=== PATIENT | female | born 1965 | race Caucasian/White ===

== ENCOUNTER 2023-05-03 10:13 | Inpatient (IN) | payer OTHER, MEDICAID, SELFPAY ==
[2023-05-03] VITALS (73 sets, daily range): BP systolic 60–137; BP diastolic 41–90; PULSE 64–184; RESP 8–26; TEMP 36.3–36.7; O2SAT 91–99
--- NOTE | 2023-05-03 10:27 | DI.RAD.S_ITS ---
PROCEDURE: XR CHEST 1V INDICATIONS: chest pain TECHNIQUE: One view of the chest was acquired. COMPARISON: None. FINDINGS: Surgical changes and devices: None. Lungs and pleura: Mild generalized interstitial prominence can be seen. No pleural effusions or pneumothorax. Mediastinum: Mediastinal contours appear normal. Heart size is moderately enlarged. Bones and chest wall: No suspicious bony lesions. Age-appropriate bony degenerative changes are seen. Overlying soft tissues appear unremarkable. IMPRESSION: Cardiomegaly and interstitial prominence. CHF is suspected. Dictated by: Donovan Lira M.D. on 05/03/2023 at 9:48 Approved by: Donovan Lira M.D. on 05/03/2023 at 9:48
[2023-05-03] MEDS: ASPIRIN 81 MG CHEW TAB 324 MG PO (10:36)
[2023-05-03 10:47] LABS: Add Manual Diff / Slide Review NO; Basophils Absolute Auto 100 /uL (0-100); Basophils Percent Auto 1.4 % (0-2); Eosinophils Absolute Auto 200 /uL (0-450); Eosinophils Percent Auto 1.6 % (2-4); Hematocrit 47.3 % (36-46); Hemoglobin 16.1 g/dL (12.0-16.0); Lymphocytes Absolute Auto 2900 /uL (1100-4500); Lymphocytes Percent Auto 29.3 % (25-40); Mean Corpuscular Hemoglobin 31.2 PG (26-34); Mean Corpuscular Volume 91.6 fL (80-100); Monocytes Absolute Auto 500 /uL (0-900); Monocytes Percent Auto 5.3 % (3-14); Neutrophils Absolute Auto 6100 /uL (1500-7000); Neutrophils Percent Auto 62.4 % (50-75); Platelet Count 193 X10^3/uL (150-400); Red Blood Cell Count 5.16 X10^6/uL (4.0-5.2); White Blood Cell Count 9.7 X10^3/uL (4.5-11.0)
[2023-05-03 10:50] LABS: INR 0.9 (0.9-1.3); Prothrombin Time 10.6 SECONDS (10.1-12.7)
[2023-05-03 10:53] LABS: PTT Partial Thromboplastin Tim 28 SECONDS (26-36)
[2023-05-03 11:00] LABS: Alanine Aminotransferase 17 IU/L (<35); Albumin 4.1 g/dL (3.5-5.0); Albumin Globulin Ratio 1.5 (1.0-2.8); Alkaline Phosphatase 63 U/L (38-126); Aspartate Aminotransferase 20 IU/L (14-36); BUN Creatinine Ratio 13.2 (6-22); Bilirubin Total 0.6 mg/dL (0.2-1.3); Blood Urea Nitrogen 12 mg/dL (7-17); Calcium 10.5 mg/dL (8.4-10.2); Carbon Dioxide 22 mmol/L (22-32); Chloride 109 mmol/L (98-107); Creatine Kinase 33 U/L (30-135); Estimated Glomerular Filt Rate > 60 mL/min (>60); Globulin 2.8 g/dL (1.7-4.1); Glucose 122 mg/dL (70-100); HEMOLYSIS 22 (0-50); Lipase 135 U/L (23-300); Magnesium 2.1 mg/dL (1.6-2.3); Potassium 4.1 mmol/L (3.4-5.1); Sodium 139 mmol/L (137-145); Total Protein 6.9 g/dL (6.3-8.2)
--- NOTE | 2023-05-03 11:07 | ED.GENADULT ---
HPI - General Adult General Chief complaint: Dizziness Stated complaint: Afib RVR Time Seen by Provider: 05/03/23 11:06 Source: patient Mode of arrival: EMS History of Present Illness HPI narrative: 57-year-old woman who presents complaining of dizzy spells increasing in intensity and frequency over the last week. She has not actually lost consciousness, not associated with chest pain, shortness of breath or diaphoresis. She states that she does not currently have a physician is not currently on any medications. She takes vitamin-D as a supplement and no additional medications. She denies any recreational medications including stimulants and opiates. Related Data Home Medications Medication Instructions Recorded Confirmed cholecalciferol (vitamin D3) 25 25 mcg PO DAILY 05/03/23 05/03/23 mcg (1,000 unit) capsule Allergies Allergy/AdvReac Type Severity Reaction Status Date / Time No Known Drug Allergies Allergy Verified 05/03/23 11:08 Review of Systems Review of Systems Narrative: Pertinent positive and negative findings as per HPI Patient History Social History household members: none Smoking Status: Current every day smoker alcohol intake: current Smoking Status: Current every day smoker Exam Initial Vital Signs Initial Vital Signs: Vital Signs Temperature 98.0 F 05/03/23 10:15 Pulse Rate 109 H 05/03/23 10:15 Respiratory Rate 18 05/03/23 10:15 Blood Pressure 116/84 05/03/23 10:15 Pulse Oximetry 95 05/03/23 10:15 Oxygen Delivery Method Room Air 05/03/23 10:15 General: Disheveled, chronically ill-appearing, in no acute distress Able to give a complete and coherent history. HEENT: Poor dentition, Moist mucous membranes, normal sclera with reactive pupils, Neck: No JVD, supple Respiratory: Lungs are clear to auscultation, no wheezing no rales no rhonchi. Full and symmetrical air movement Cardiac: Regular rate and rhythm no murmurs no bruits -as we are talking she goes into a narrow rapid rhythm. She states she can feel this it does not cause pain. This has been going on all week. Abdomen: Soft, nontender, good bowel tones, no flank pain Skin: Warm and dry, no rashes Neurologic: Grossly neurologically intact with no obvious asymmetries or abnormalities Extremities: No trauma, well perfused Psych: Cooperative, appropriate insight and affect Course Orders Ordered: Acetaminophen (Acetaminophen 325 Mg Tablet) 650 mg PO Q6H PRN PRN Reason: Fever/Mild Pain (1-3) Ceftriaxone Sodium 1,000 mg/ (Sodium Chloride) 100 mls @ 200 mls/hr IV Q24H [facility] Stop: 05/05/23 10:14 Last Admin: 05/04/23 09:46 Dose: 200 mls/hr Documented By: TOM Melatonin (Melatonin 3 Mg Tablet) 6 mg PO BEDTIME PRN PRN Reason: Insomnia Metoprolol Succinate (Metoprolol Er 25 Mg Tablet) 12.5 mg PO DAILY [facility] Last Admin: 05/04/23 09:43 Dose: 12.5 mg Documented By: TOM Naloxone HCl (Naloxone 0.4 Mg/Ml Vial) 0.2 mg IV Q2MIN PRN PRN Reason: Opiate Reversal Polyethylene Glycol (Polyethylene Glycol 3350 17 Gm Powd.Pack) 17 gm PO DAILY PRN PRN Reason: Constipation Sennosides (Sennosides 8.6 Mg Tablet) 8.6 mg PO BID PRN PRN Reason: Constipation Discontinued Medications Aspirin (Aspirin 81 Mg Chew Tab) 324 mg PO NOW ONE Stop: 05/03/23 10:28 Last Admin: 05/03/23 10:36 Dose: 324 mg Documented By: BEL Furosemide (Furosemide 40 Mg/4 Ml Vial) 20 mg IV NOW ONE Stop: 05/03/23 13:59 Last Admin: 05/03/23 15:18 Dose: Not Given Documented By: TOM Sodium Chloride (Normal Saline 0.9%) 1,000 mls @ 1,000 mls/hr IV BOLUS ONE Stop: 05/03/23 12:05 Last Infusion: 05/03/23 12:29 Dose: Infused Documented By: Admin: 05/03/23 11:55 Dose: 1,000 mls/hr Documented By: BEL Amiodarone HCl/Dextrose (Nexterone) 150 mg in 100 mls @ 600 mls/hr IV NOW ONE; Protocol Stop: 05/03/23 12:04 Last Infusion: 05/03/23 12:30 Dose: Infused Documented By: Admin: 05/03/23 12:14 Dose: 600 mls/hr Documented By: BEL Ceftriaxone Sodium 2,000 mg/ (Sodium Chloride) 100 mls @ 200 mls/hr IV NOW ONE Stop: 05/03/23 12:28 Last Admin: 05/03/23 15:29 Dose: Not Given Documented By: TOM Sodium Chloride (Normal Saline 0.9%) 1,000 mls @ 1,000 mls/hr IV BOLUS ONE Stop: 05/03/23 13:26 Last Admin: 05/03/23 15:18 Dose: Not Given Documented By: TOM Sodium Chloride (Normal Saline 0.9%) 1,000 mls @ 100 mls/hr IV CONT GASPER Stop: 05/04/23 01:29 Last Admin: 05/03/23 15:18 Dose: Not Given Documented By: TOM Amiodarone HCl/Dextrose (Nexterone) 360 mg in 200 mls @ 33.333 mls/hr IV NOW ONE; Protocol Stop: 05/03/23 20:28 Last Admin: 05/03/23 14:29 Dose: Not Given Documented By: TOM Amiodarone HCl/Dextrose (Nexterone) 360 mg in 200 mls @ 16.7 mls/hr IV CONT GASPER; Protocol Stop: 05/04/23 08:27 Last Admin: 05/04/23 07:20 Dose: Not Given Documented By: TOM Amiodarone HCl/Dextrose (Nexterone) 180 mg in 100 mls @ 16.7 mls/hr IV CONT GASPER; Protocol Stop: 05/04/23 14:27 Last Admin: 05/04/23 07:34 Dose: Not Given Documented By: TOM Ceftriaxone Sodium 1,000 mg/ (Sodium Chloride) 100 mls @ 200 mls/hr IV Q24H [facility] Stop: 05/05/23 09:01 Metoprolol Tartrate (Metoprolol Ir 25 Mg Tablet) 12.5 mg PO NOW ONE Stop: 05/03/23 11:33 Last Admin: 05/03/23 11:55 Dose: 12.5 mg Documented By: BEL Vital Signs Vital signs: Vital Signs - 8 hr 05/03/23 10:15 05/03/23 10:17 05/03/23 10:19 Temperature 98.0 F Pulse Rate 109 H Respiratory Rate 18 Blood Pressure 116/84 116/84 Pulse Oximetry 95 95 Oxygen Delivery Method Room Air 05/03/23 10:19 05/03/23 10:20 05/03/23 10:25 Temperature Pulse Rate 115 H 103 H 102 H Respiratory Rate 10 L Blood Pressure Pulse Oximetry 96 96 96 Oxygen Delivery Method Room Air 05/03/23 10:30 05/03/23 10:30 05/03/23 10:35 Temperature Pulse Rate 145 H 104 H Respiratory Rate 12 11 L Blood Pressure 114/87 Pulse Oximetry 95 95 Oxygen Delivery Method 05/03/23 10:40 05/03/23 10:45 05/03/23 10:50 Temperature Pulse Rate 105 H 142 H 113 H Respiratory Rate 10 L 14 11 L Blood Pressure Pulse Oximetry 95 95 96 Oxygen Delivery Method 05/03/23 10:55 05/03/23 11:00 05/03/23 11:01 Temperature Pulse Rate 143 H 182 H Respiratory Rate 21 18 Blood Pressure 60/41 L Pulse Oximetry 95 93 Oxygen Delivery Method 05/03/23 11:01 Temperature Pulse Rate 88 Respiratory Rate 14 Blood Pressure Pulse Oximetry 95 Oxygen Delivery Method Medical Decision Making Lab Data 05/04/23 04:04 05/04/23 04:04 Labs: Lab Results 05/03/23 05/03/23 Range/Units 10:35 11:48 WBC 9.7 (4.5-11.0) X10^3/uL RBC 5.16 (4.0-5.2) X10^6/uL Hgb 16.1 H (12.0-16.0) g/dL Hct 47.3 H (36-46) % MCV 91.6 (80-100) fL MCH 31.2 (26-34) PG MCHC 34.0 (30-36) % RDW 14.0 (11.6-14.8) % Plt Count 193 (150-400) X10^3/uL Neut % (Auto) 62.4 (50-75) % Lymph % (Auto) 29.3 (25-40) % Hitchcock % (Auto) 5.3 (3-14) % Eos % (Auto) 1.6 L (2-4) % Baso % (Auto) 1.4 (0-2) % Neut # (Auto) 6100 (7593-1498) /uL Lymph # (Auto) 2900 (6976-1827) /uL Hitchcock # (Auto) 500 (0-900) /uL Eos # (Auto) 200 (0-450) /uL Baso # (Auto) 100 (0-100) /uL PT 10.6 (10.1-12.7) SECONDS INR 0.9 (0.9-1.3) APTT 28 (26-36) SECONDS D-Dimer 423 (<500) ng/ml Sodium 139 (137-145) mmol/L Potassium 4.1 (3.4-5.1) mmol/L Chloride 109 H (98-107) mmol/L Carbon Dioxide 22 (22-32) mmol/L BUN 12 (7-17) mg/dL Creatinine 0.91 (0.52-1.04) mg/dL Estimated GFR > 60 (>60) mL/min BUN/Creatinine Ratio 13.2 (6-22) Glucose 122 H (70-100) mg/dL Lactate 2.2 H (0.7-2.1) mmol/L Calcium 10.5 H (8.4-10.2) mg/dL Magnesium 2.1 (1.6-2.3) mg/dL Total Bilirubin 0.6 (0.2-1.3) mg/dL AST 20 (14-36) IU/L ALT 17 (<35) IU/L Alkaline Phosphatase 63 (38-126) U/L Total Creatine Kinase 33 (30-135) U/L Troponin I < 0.012 (0.01-0.034) ng/mL NT-Pro-B Natriuret Pep 376 H (<125) pg/mL Total Protein 6.9 (6.3-8.2) g/dL Albumin 4.1 (3.5-5.0) g/dL Globulin 2.8 (1.7-4.1) g/dL Albumin/Globulin Ratio 1.5 (1.0-2.8) Lipase 135 (23-300) U/L TSH 2.40 (0.47-4.68) uIU/mL Urine Color Yellow Urine Appearance Clear Urine pH 7.0 (4.5-8.0) Ur Specific [place] <=1.005 (1.000-1.035) Urine Protein Negative (Negative) Urine Glucose (UA) Negative (Negative) g/dL Urine Ketones Negative (NEGATIVE) Urine Occult Blood Trace-intact (Negative) Urine Nitrate Positive H (Negative) Urine Bilirubin Negative (NEGATIVE) Urine Urobilinogen 0.2 (0.2) E.U./dL Ur Leukocyte Esterase Trace H (NEGATIVE) Urine RBC 0-1/hpf (0-5/HPF) Urine WBC 1-5/hpf (0-5/HPF) Ur Squamous Epith Cells 1-5 /hpf (0-5/HPF) Urine Bacteria Many (>30) H (None) Ur Culture Indicated? Specimen cultured U Opiates 300ng/mL cut Negative (Negative) Ur Oxycodone Screen Negative (Negative) Urine Methadone Screen Negative (Negative) Ur Barbiturates Screen Negative (Negative) U Tricyclic Antidepress Negative (Negative) Ur Phencyclidine Scrn Negative (Negative) Ur Amphetamines Screen Negative (Negative) U Methamphetamines Scrn Negative (Negative) Ur MDMA Scrn (Ecstasy) Negative (Negative) U Benzodiazepines Scrn Negative (Negative) Urine Cocaine Screen Negative (Negative) U Marijuana (THC) Screen Negative (Negative) Urine Dip Bedside Urine Glucose Negative Bedside Urine Bilirubin - Negative Bedside Urine Ketone - Negative Urine Specific [place] 1.000 Bedside Urine Occult Blood +/- Bedside Urine pH 7.0 Bedside Urine Protein - Negative Bedside Urine Urobilinogen - Negative Bedside Urine Nitrite + Positive Bedside Urine Leukocytes +/- 15 Esterase Point of care testing: Urine Dip Bedside Urine Glucose Negative Bedside Urine Bilirubin - Negative Bedside Urine Ketone - Negative Urine Specific [place] 1.000 Bedside Urine Occult Blood +/- Bedside Urine pH 7.0 Bedside Urine Protein - Negative Bedside Urine Urobilinogen - Negative Bedside Urine Nitrite + Positive Bedside Urine Leukocytes +/- 15 Esterase MDM Narrative Medical decision making narrative: CC: Dizzy spells Complicating co-morbidities: Poor access to medical care Data collected from: patient, nephew was present in the room Social determinants of health that may influence the patients condition: Medical records reviewed: No records are available for review Differential considered: Atrial tachycardia is including SVT, atrial fibrillation, atrial flutter, ventricular tachycardia is, acute coronary syndrome, cardiomyopathy, congestive heart failure Exam documented above, pertinent findings include: Rapidly changing rhythm going from sinus in the 70s to sinus tach to a narrow complex rhythm in the almost 200 range. She does not have clinical signs or symptoms of congestive heart failure Lab Test results independently reviewed as above. Pertinent findings: CBC shows mild hemo concentration, she is a smoker PT, INR, PTT are all normal Chemistries are relatively reassuring with a normal creatinine. Calcium is slightly elevated at 10.5 Initial troponin is undetectable TSH is appropriate BNP fairly unremarkable at 376 Utox is negative Urine does suggest positive nitrites trace leukocytes and bacteria. Will opt to treat for a bladder infection D-dimer is negative suggesting absence of pulmonary embolism Independently reviewed EKG Rhythm strips from the medics were reviewed and show plethora of abnormalities going sinus to SVT to sinus tach Initially EKG shows sinus tach at 1:09 a.m. with PVCs and no acute ischemic changes Telemetry shows normal sinus at a rate of 70 Repeat EKG shows supraventricular tachycardia at a rate of 182 with concurrent significant hypotension Imaging studies independently reviewed: Cardiomegaly with volume overload consistent with mild congestive heart failure Consultations: Care is reviewed with Cardiology, Dr Simmons. Recommendation was a L of fluid and oral beta-blockers Treatments: Aspirin is given, a L of fluid is given. 12.5 mg of oral metoprolol, IV amiodorone, IV ceftriaxone Re-evaluations: 1150 patient is re-evaluated. It still having rapid fluctuations in rhythms, still all atrial rhythms. Discussed with admitting hospitalist, Dr. Dobson. We will try 150 mg of IV amiodarone. A D-dimer is added Discussion: 57-year-old woman with intermittent episodes of very rapid SVT along with other atrial tachycardia is. Ongoing for at least a week with increasing episodes of dizzy spells. Associated hypotension with the rapid rhythms. Likely congestive heart failure which is a new diagnosis for her. Unsure if this is secondary to the rhythm abnormalities or if there is an underlying additional reason for a cardiomyopathy that may be causing the atrial abnormalities. Screen for meth is unremarkable. Her urine does look like she may have a bladder infection however she is not symptomatic with this. Will give her a dose of ceftriaxone and check lactic acid and blood cultures 1st. D-dimer was unremarkable, do not suspect pulmonary embolism. Reviewed with the hospitalist and will be admitted for further evaluation for her supraventricular tachyarrhythmias with hypotension Critical Care Time Critical Care Time Attestation: Critical care time is separate from other billable procedures. There is a high probability of a significant, sudden or life-threatening deterioration that requires my full and direct attention, intervention and personal management. This critical care time includes consultation with family and other consulting doctors, review of records, and interpretation of data from labs, EKGs and imaging as well as managements of acute life-threatening arrhythmias and hypotension Discharge Plan Departure Patient Disposition: Admitted As Inpatient Clinical Impression: Supraventricular dysrhythmia UTI (urinary tract infection) Qualifiers: Urinary tract infection type: acute cystitis Hematuria presence: without hematuria Qualified Code(s): N30.00 - Acute cystitis without hematuria Admit Date/Time: 05/03/23 13:08 Admit Provider: Ken Dobson
[2023-05-03 11:10] LABS: Troponin I < 0.012 ng/mL (0.01-0.034)
--- NOTE | 2023-05-03 11:39 | PC.NURSE ---
pt is refusing bedside commode. Education completed regarding risks of walking around w/ verbalized understanding I don't care. Ambulated to bathroom w/ staff member.
[2023-05-03 11:42] LABS: NT-proBNP (BNP-Adult 18+) 376 pg/mL (<125)
[2023-05-03] MEDS: SODIUM CHLORIDE 0.9% 1,000 ML 1000 ML IV (11:55)
[2023-05-03] MEDS: METOPROLOL IR 25 MG TABLET 12.5 MG PO (11:55)
[2023-05-03 12:04] LABS: D Dimer 423 ng/ml (<500)
[2023-05-03 12:09] LABS: Appearance Urine UA CLEAR; Bilirubin Urine UA NEGATIVE (NEGATIVE); Color Urine UA YELLOW; Glucose Urine UA NEGATIVE (Negative); Ketones Urine UA NEGATIVE (NEGATIVE); Leukocyte Esterase Urine UA TRACE (NEGATIVE); Nitrite Urine UA POSITIVE (Negative); Occult Blood Urine UA TRACE-INTACT (Negative); Protein Urine UA NEGATIVE (Negative); Specific Gravity Urine UA <=1.005 (1.000-1.035); Urobilinogen Urine UA 0.2 E.U./dL (0.2)
[2023-05-03 12:12] LABS: UR Morphine/Opiate cutoff 300 Negative (Negative); Ur Creatinine Normal (Normal); Ur Specific Gravity Normal (Normal); Urine Amphetamines Negative (Negative); Urine Barbiturates Negative (Negative); Urine Benzodiazepines Negative (Negative); Urine Cocaine Negative (Negative); Urine MDMA Negative (Negative); Urine Methadone Negative (Negative); Urine Methamphetamines Negative (Negative); Urine Oxycodone Negative (Negative); Urine Phencyclidine Negative (Negative); Urine Tetrahydrocannabinol Negative (Negative); Urine Tricyclic Antidepressant Negative (Negative); Urine pH Normal (Normal)
[2023-05-03] MEDS: AMIODARONE 150 MG/100 ML PIGGYBACK 600 MG IV (12:14)
[2023-05-03 12:17] LABS: Bacteria Urine Many (>30); Culture Indicated Urine Specimen Cultured; RBC Urine 0-1/HPF (0-5/HPF); Squamous Epithelial Cell Urine 1-5 /HPF (0-5/HPF); WBC Urine 1-5/HPF (0-5/HPF)
--- NOTE | 2023-05-03 12:36 | PC.NURSE ---
Pt refused blood cultures, Dr. León ok'd drawning off line.
[2023-05-03 12:41] LABS: Lactate (Lactic Acid) 2.2 mmol/L (0.7-2.1)
--- NOTE | 2023-05-03 13:24 | DI.ECHO.S_ITS ---
[facility]---------+ [facility] +---------+ : : [address] : : : : [id number] : : : : Phone: [phone]+ Echocardiogram Report + + :Name: MARGARITO PEREZ Study Date: 05/04/2023 Height: 64 in : :[facility] ReadingLocation: Weight: 175 lb : : Gender: Female BSA: 1.8 m2 : :: 1965 Age: 57 yrs BP: 108/68 mmHg: :Reason For Study: Recurrent SVT : :Ordering Physician: MARQUIS, : :TASH [place] Performed By: Sangita Edmonds : :Referring: TASH CHO : + + Interpretation Summary Rhythm is not clear. Possible ectopic atrial rhythm with frequent run of atrial tachycardia. Could be short run of atrial flutter. Correlate clinically. The left ventricle is normal in size. The left ventricular ejection fraction is normal. The ejection fraction is estimated to be 55-60%. No obvious regional wall motion abnormalities however significant dyssynchrony during atrial tachycardia. The right ventricle grossly appears normal in size with probable normal systolic function. The IVC is of normal diameter and collapses greater than 50% with a sniff. This suggests a low right atrial pressure of 3 mm Hg. There is a large about 8.12 x 4.05 cm mass seen in the right atrium. In subcostal view it is involving all the posterior width of the right atrium and extending all the way towards the tricuspid valve. Its not encroaching the tricuspid valve. It is filling most of the right atrium. From apical views this appears to be a humongous interatrial septal hypertrophy along with prominent eustachian valve. No encroachment to the inferior vena cava. Consider cardiac MRI or JAZIEL for further evaluation of right atrial mass. Procedure: A two-dimensional transthoracic echocardiogram with color flow and Doppler was performed in limited views only. The study quality was technically adequate. There is no prior echocardiogram noted for this patient. A contrast injection of Definity was performed to improve assessment of LV function. Rhythm is not clear. Possible ectopic atrial rhythm with frequent run of atrial tachycardia. Could be short run of atrial flutter. Correlate clinically. Left Ventricle: The left ventricle is normal in size. There is normal left ventricular wall thickness. There is no thrombus. The left ventricular ejection fraction is normal. The ejection fraction is estimated to be 55-60%. No obvious regional wall motion abnormalities however significant dyssynchrony during atrial tachycardia. Right Ventricle: The right ventricle grossly appears normal in size with probable normal systolic function. Atria: The left atrial size is normal. A mass is seen in the right atrium. There is a large about 8.12 x 4.05 cm mass seen in the right atrium. In subcostal view it is involving all the posterior width of the right atrium and extending all the way towards the tricuspid valve. Its not encroaching the tricuspid valve. It is filling most of the right atrium. From apical views this may appears to be a humongous interatrial septal hypertrophy along with prominent eustachian valve. No encroachment to the inferior vena cava. Mitral Valve: The mitral valve is normal. There is no mitral regurgitation noted. Aortic Valve: The aortic valve is not well visualized. There is no aortic valve stenosis. Tricuspid Valve: The tricuspid valve is not well visualized, but is grossly normal. There is trace tricuspid regurgitation. Pulmonic Valve: The pulmonic valve is not well visualized. There is no pulmonic valvular stenosis. There is trace pulmonic regurgitation. Great Vessels: The ascending aorta is at the upper limits of normal in size. The IVC is of normal diameter and collapses greater than 50% with a sniff. This suggests a low right atrial pressure of 3 mm Hg. Pericardium/ Pleura There is an anterior echo-free space consistent with a fat pad. MMode/2D Measurements & Calculations asc Aorta Diam: 3.7 cm Reading Physician:02:59 PM
--- NOTE | 2023-05-03 13:56 | PM.HP.1 ---
History of Present Illness History of Present Illness Date Patient Seen: 05/03/23 Time Patient Seen: 17:14 Chief complaint: Afib RVR Narrative: Ana Cristina Lam is a 57-year-old female with no significant past medical history who presents with recurrent dizzy spells and found to be having SVT episodes in the ED. Patient says she has had lighheadedness randomly requiring her to sit down for it to improve over the last week. She then had an episode today where she felt like curtains were closing in and she was going to pass out so she called EMS. She did not lose consciousness but had presyncope. In the ED patient found to be having runs of SVT with HR up to 190's. She did not require cardioversion as it would abruptly return to sinus. BP soft in the ED as well, but patient notes she always has very low BP and has no symptoms. She denies CP, SOB, abd pain, LE swelling, diarrhea or dysuria. [facility] Social History household members: none Smoking Status: Current every day smoker alcohol intake: current Meds Home Medications and Allergies Home Medications Medication Instructions Recorded Confirmed Type cholecalciferol (vitamin D3) 25 25 mcg PO DAILY 05/03/23 05/03/23 History mcg (1,000 unit) capsule Allergies Allergy/AdvReac Type Severity Reaction Status Date / Time No Known Drug Allergies Allergy Verified 05/03/23 11:08 Review of Systems Review of Systems Narrative: All other systems reviewed with the patient and are negative unless otherwise stated. Exam Vital Signs (past 8 hours): - 05/03/23 10:15 05/03/23 10:17 05/03/23 10:19 Temperature 98.0 F Pulse Rate 109 H Respiratory Rate 18 Blood Pressure 116/84 116/84 Pulse Oximetry 95 95 Oxygen Delivery Method Room Air 05/03/23 10:19 05/03/23 10:20 05/03/23 10:25 Temperature Pulse Rate 115 H 103 H 102 H Respiratory Rate 10 L Blood Pressure Pulse Oximetry 96 96 96 Oxygen Delivery Method Room Air 05/03/23 10:30 05/03/23 10:30 05/03/23 10:35 Temperature Pulse Rate 145 H 104 H Respiratory Rate 12 11 L Blood Pressure 114/87 Pulse Oximetry 95 95 Oxygen Delivery Method 10/07/23 10:40 05/03/23 10:45 05/03/23 10:50 Temperature Pulse Rate 105 H 142 H 113 H Respiratory Rate 10 L 14 11 L Blood Pressure Pulse Oximetry 95 95 96 Oxygen Delivery Method 05/03/23 10:55 05/03/23 11:00 05/03/23 11:01 Temperature Pulse Rate 143 H 182 H Respiratory Rate 21 18 Blood Pressure 60/41 L Pulse Oximetry 95 93 Oxygen Delivery Method 05/03/23 11:01 05/03/23 11:03 05/03/23 11:03 Temperature Pulse Rate 88 184 H Respiratory Rate 14 15 Blood Pressure 99/67 Pulse Oximetry 95 95 Oxygen Delivery Method 05/03/23 11:05 05/03/23 11:05 05/03/23 11:10 Temperature Pulse Rate 138 H 172 H Respiratory Rate 15 14 Blood Pressure 89/65 L Pulse Oximetry 95 95 Oxygen Delivery Method 05/03/23 11:15 05/03/23 11:17 05/03/23 11:17 Temperature Pulse Rate 74 95 H Respiratory Rate 12 13 Blood Pressure 92/52 L Pulse Oximetry 97 96 Oxygen Delivery Method 05/03/23 11:20 05/03/23 11:21 05/03/23 11:21 Temperature Pulse Rate 92 H 93 H Respiratory Rate 12 14 Blood Pressure 107/60 Pulse Oximetry 96 96 Oxygen Delivery Method 05/03/23 11:25 05/03/23 11:26 05/03/23 11:26 Temperature Pulse Rate 167 H 148 H Respiratory Rate 8 L 9 L Blood Pressure 108/86 Pulse Oximetry 97 97 Oxygen Delivery Method 05/03/23 11:30 05/03/23 11:31 05/03/23 11:31 Temperature Pulse Rate 83 127 H Respiratory Rate 8 L 9 L Blood Pressure 113/57 L Pulse Oximetry 99 98 Oxygen Delivery Method 05/03/23 11:35 05/03/23 11:35 05/03/23 11:44 Temperature Pulse Rate 79 109 H Respiratory Rate 8 L 14 Blood Pressure 109/65 Pulse Oximetry 98 Oxygen Delivery Method 05/03/23 11:45 05/03/23 11:50 05/03/23 11:55 Temperature Pulse Rate 108 H 100 H 184 H Respiratory Rate 15 13 19 Blood Pressure Pulse Oximetry 91 97 Oxygen Delivery Method 05/03/23 11:56 05/03/23 11:56 05/03/23 12:00 Temperature Pulse Rate 97 H 100 H Respiratory Rate 26 H 26 H Blood Pressure 137/90 Pulse Oximetry 93 95 Oxygen Delivery Method 05/03/23 12:01 05/03/23 12:01 05/03/23 12:05 Temperature Pulse Rate 89 184 H Respiratory Rate 14 10 L Blood Pressure 134/90 Pulse Oximetry 95 97 Oxygen Delivery Method 05/03/23 12:06 05/03/23 12:06 05/03/23 12:10 Temperature Pulse Rate 135 H 95 H Respiratory Rate 11 L 18 Blood Pressure 99/52 L Pulse Oximetry 97 97 Oxygen Delivery Method 05/03/23 12:11 05/03/23 12:11 05/03/23 12:15 Temperature Pulse Rate 105 H 87 Respiratory Rate 24 24 Blood Pressure 94/52 L Pulse Oximetry 97 97 Oxygen Delivery Method 05/03/23 12:16 05/03/23 12:16 05/03/23 12:20 Temperature Pulse Rate 137 H 94 H Respiratory Rate 14 23 Blood Pressure 95/59 L Pulse Oximetry 96 97 Oxygen Delivery Method 05/03/23 12:24 05/03/23 12:24 05/03/23 12:25 Temperature Pulse Rate 90 174 H Respiratory Rate 19 16 Blood Pressure 114/77 Pulse Oximetry 96 98 Oxygen Delivery Method 05/03/23 12:26 05/03/23 12:26 05/03/23 12:30 Temperature Pulse Rate 76 138 H Respiratory Rate 17 19 Blood Pressure 118/66 Pulse Oximetry 96 97 Oxygen Delivery Method 05/03/23 12:31 05/03/23 12:31 05/03/23 12:35 Temperature Pulse Rate 160 H 89 Respiratory Rate 18 23 Blood Pressure 98/53 L Pulse Oximetry 97 97 Oxygen Delivery Method 05/03/23 12:40 05/03/23 12:41 05/03/23 12:41 Temperature Pulse Rate 162 H 76 Respiratory Rate 26 H 19 Blood Pressure 91/42 L Pulse Oximetry 96 97 Oxygen Delivery Method 05/03/23 12:45 05/03/23 12:50 05/03/23 12:51 Temperature Pulse Rate 88 91 H Respiratory Rate 18 11 L Blood Pressure 117/57 L Pulse Oximetry 91 96 Oxygen Delivery Method 05/03/23 12:51 05/03/23 12:55 05/03/23 13:00 Temperature Pulse Rate 151 H 85 79 Respiratory Rate 11 L 15 11 L Blood Pressure Pulse Oximetry 96 97 95 Oxygen Delivery Method 05/03/23 13:01 05/03/23 13:01 05/03/23 13:05 Temperature Pulse Rate 137 H 75 Respiratory Rate 10 L 9 L Blood Pressure 99/57 L Pulse Oximetry 95 94 Oxygen Delivery Method 05/03/23 13:10 05/03/23 13:10 05/03/23 13:15 Temperature Pulse Rate 78 76 Respiratory Rate 10 L 10 L Blood Pressure 90/64 Pulse Oximetry 94 92 Oxygen Delivery Method 05/03/23 13:20 05/03/23 13:21 05/03/23 13:21 Temperature Pulse Rate 80 79 Respiratory Rate 19 18 Blood Pressure 102/60 Pulse Oximetry 96 95 Oxygen Delivery Method 05/03/23 13:25 Temperature Pulse Rate 83 Respiratory Rate 21 Blood Pressure Pulse Oximetry 94 Oxygen Delivery Method Oxygen Delivery Method Room Air Narrative Exam Narrative: GEN: no acute distress, malodorous and slightly disheveled HEENT: moist mucous membranes, PERRL NECK: trachea midline, no JVD CV: regular rate and rhythm, no murmurs PULM: clear bilaterally ABD: soft, nontender, nondistended, no organomegaly EXT: warm and well perfused with no edema NEURO: awake, alert, oriented, no focal deficits Objective Labs 05/03/23 10:35 05/03/23 10:35 Labs: Laboratory Results - last 24 hr 05/03/23 05/03/23 10:35 11:48 WBC 9.7 RBC 5.16 Hgb 16.1 H Hct 47.3 H MCV 91.6 MCH 31.2 MCHC 34.0 RDW 14.0 Plt Count 193 Neut % (Auto) 62.4 Lymph % (Auto) 29.3 [place] % (Auto) 5.3 Eos % (Auto) 1.6 L Baso % (Auto) 1.4 Neut # (Auto) 6100 Lymph # (Auto) 2900 [place] # (Auto) 500 Eos # (Auto) 200 Baso # (Auto) 100 PT 10.6 INR 0.9 APTT 28 D-Dimer 423 Sodium 139 Potassium 4.1 Chloride 109 H Carbon Dioxide 22 BUN 12 Creatinine 0.91 Estimated GFR > 60 BUN/Creatinine Ratio 13.2 Glucose 122 H Lactate 2.2 H Calcium 10.5 H Magnesium 2.1 Total Bilirubin 0.6 AST 20 ALT 17 Alkaline Phosphatase 63 Total Creatine Kinase 33 Troponin I < 0.012 NT-Pro-B Natriuret Pep 376 H Total Protein 6.9 Albumin 4.1 Globulin 2.8 Albumin/Globulin Ratio 1.5 Lipase 135 TSH 2.40 Urine Color Yellow Urine Appearance Clear Urine pH 7.0 Ur Specific [place] <=1.005 Urine Protein Negative Urine Glucose (UA) Negative Urine Ketones Negative Urine Occult Blood Trace-intact Urine Nitrate Positive H Urine Bilirubin Negative Urine Urobilinogen 0.2 Ur Leukocyte Esterase Trace H Urine RBC 0-1/hpf Urine WBC 1-5/hpf Ur Squamous Epith Cells 1-5 /hpf Urine Bacteria Many (>30) H Ur Culture Indicated? Specimen cultured U Opiates 300ng/mL cut Negative Ur Oxycodone Screen Negative Urine Methadone Screen Negative Ur Barbiturates Screen Negative U Tricyclic Antidepress Negative Ur Phencyclidine Scrn Negative Ur Amphetamines Screen Negative U Methamphetamines Scrn Negative Ur MDMA Scrn (Ecstasy) Negative U Benzodiazepines Scrn Negative Urine Cocaine Screen Negative U Marijuana (THC) Screen Negative Assessment & Plan Assessment & Plan narrative: # recurrent symptomatic SVT -having runs of 180's HR in ED, EKG confirmed SVT. Then would drop back to sinus w/ HR 70's -BP dropped with 12.5 po metop tart, amio drip started -echo as below -tele -no indication for pacemaker unless has symptomatic bradycardia # hypotension -patient BP as low as 60/41, she is asymptomatic -monitor and avoid BP lowering meds # possible new-onset CHF -CXR with pulm edema, CHF suspected -BNP 376 -echo ordered # acute lightheadedness -likely related to low BP and orthostasis -received IVF -qshift orthostatics Code status is full code. DVT prophylaxis with SCDs. Proxy is . I have reviewed home meds and used all available resources to reconcile the home meds. Case discussed with ED physician/APC and patient will be admitted to the hospitalist service for further workup and management. This patient will be admitted as observation and will require less than 2 midnights of hospital time to treat recurrent SVT.
[2023-05-03 14:31] LABS: Reflexed Lactate in 2 Hours Y
--- NOTE | 2023-05-03 15:16 | PC.NURSE ---
1330: received report from CLEMENTINE Davis. patient is a/o, voices needs. SBA/ind w/ mobility and ADLs. per EMT report: patient had called 911 this morning due to feeling dizzy for the last few days. telemetry: NSR, AFib RVR, SVT up to 190 bpm at one point. soft b/p's, 90's/50's. was given amiodarone in ED, u/a + for UTI. arrived to floor via w/c. assisted into a gown, telemetry applied. strong body odor, patient s/u with wipes to wash armpits and freshen up w/ some deoderant, patient states she was going to go to my sisters and take a shower, but i havent done that yet. patient told FRONT COUNTER CLERK my sister is total care, and i am her caregiver. patient states: my doctor retired and i havent been to a doctor in over 20 years. b/p obtained: /38 RUE. conflicting orders in place, call to Dr Dobson. updated on current VS. orders to transfer to ICU. report to ORDER FULFILLMENT SPECIALISTCLEMENTINE Zepeda.
[2023-05-03 15:46] LABS: Lactate 2HR (Lactic Acid Rflx) 1.5 mmol/L (0.7-2.1)
[2023-05-03 18:14] LABS: MRSA (Nasal) PCR Not Detected (Not Detect)
[2023-05-04] VITALS (17 sets, daily range): BP systolic 102–146; BP diastolic 62–85; PULSE 61–180; RESP 17–19; TEMP 36.2–37.1; O2SAT 96–99
[2023-05-04 04:47] LABS: BUN Creatinine Ratio 14.6 (6-22); Blood Urea Nitrogen 13 mg/dL (7-17); Calcium 10.1 mg/dL (8.4-10.2); Carbon Dioxide 25 mmol/L (22-32); Chloride 107 mmol/L (98-107); Estimated Glomerular Filt Rate > 60 mL/min (>60); Glucose 103 mg/dL (70-100); HEMOLYSIS < 15 (0-50); Sodium 139 mmol/L (137-145)
[2023-05-04 04:57] LABS: Basophils Absolute Auto 100 /uL (0-100); Basophils Percent Auto 1.3 % (0-2); Eosinophils Absolute Auto 300 /uL (0-450); Eosinophils Percent Auto 3.3 % (2-4); Hematocrit 44.7 % (36-46); Hemoglobin 15.2 g/dL (12.0-16.0); Lymphocytes Absolute Auto 4000 /uL (1100-4500); Lymphocytes Percent Auto 42.9 % (25-40); Mean Corpuscular Hemoglobin 31.3 PG (26-34); Mean Corpuscular Volume 92.1 fL (80-100); Monocytes Absolute Auto 500 /uL (0-900); Monocytes Percent Auto 5.9 % (3-14); Neutrophils Absolute Auto 4300 /uL (1500-7000); Neutrophils Percent Auto 46.6 % (50-75); Red Blood Cell Count 4.85 X10^6/uL (4.0-5.2); Red Cell Distribution Width 14.1 % (11.6-14.8); White Blood Cell Count 9.3 X10^3/uL (4.5-11.0)
[2023-05-04 05:04] LABS: Add Manual Diff / Slide Review SLIDE REVIEW
[2023-05-04 06:45] LABS: Platelet Count 164 X10^3/uL (150-400)
[2023-05-04 06:46] LABS: Platelet Estimate Adequate on smear; RBC Morphology Normal Morphology
--- NOTE | 2023-05-04 08:00 | P.PN_ITS ---
Subjective Subjective Interval history: Patient notes intermittent palpitations and dizziness. Tele picking up runs of SVT so she was moved to the ICU for amiodarone drip. Exam Vital Signs (past 8 hours): - 05/06/23 00:10 05/06/23 04:00 Temperature 97.0 F L 97.2 F L Pulse Rate 75 70 Respiratory Rate 17 17 Blood Pressure 128/78 128/71 Pulse Oximetry 96 93 Fraction of Inspired Oxygen 21 Oxygen Delivery Method Room Air Oxygen Flow Rate 0 Narrative Exam Narrative: GEN: no acute distress, malodorous and slightly disheveled HEENT: moist mucous membranes, PERRL NECK: trachea midline, no JVD CV: regular rate and rhythm, no murmurs PULM: clear bilaterally ABD: soft, nontender, nondistended, no organomegaly EXT: warm and well perfused with no edema NEURO: awake, alert, oriented, no focal deficits Objective Labs 05/06/23 04:13 05/06/23 04:13 Labs: Laboratory Results - last 24 hr 05/06/23 04:13 WBC 9.6 RBC 4.77 Hgb 14.9 Hct 43.8 MCV 91.8 MCH 31.1 MCHC 33.9 RDW 14.5 Plt Count 156 Neut % (Auto) 50.2 Lymph % (Auto) 37.0 [place] % (Auto) 6.1 Eos % (Auto) 4.9 H Baso % (Auto) 1.8 Neut # (Auto) 4800 Lymph # (Auto) 3500 [place] # (Auto) 600 Eos # (Auto) 500 H Baso # (Auto) 200 H Sodium 139 Potassium 4.0 Chloride 108 H Carbon Dioxide 24 BUN 9 Creatinine 0.87 Estimated GFR > 60 BUN/Creatinine Ratio 10.3 Glucose 102 H Calcium 10.8 H PFSH Social History household members: none Smoking Status: Current every day smoker alcohol intake: current Assessment & Plan Assessment & Plan narrative: # recurrent symptomatic SVT -having runs of 180's HR in ED, EKG confirmed SVT. Then would drop back to sinus w/ HR 70's -BP dropped with 12.5 po metop tart, amio drip started -echo as below -tele -no indication for pacemaker unless has symptomatic bradycardia # hypotension -patient BP as low as 60/41, she is asymptomatic -monitor and avoid BP lowering meds -orthostatic vitals qshift # possible new-onset CHF -CXR with pulm edema, CHF suspected -BNP 376 -echo ordered # acute lightheadedness -likely related to low BP and orthostasis -received IVF -qshift orthostatics Code status is full code. DVT prophylaxis with SCDs. Proxy is . I have reviewed home meds and used all available resources to reconcile the home meds. Dispo: Pending improvement in SVT and echo results. Quality VTE Deep Vein Thrombosis/Pulmonary Embolism Present on Admission: No
--- NOTE | 2023-05-04 09:25 | CM.DANOTE ---
DCP Brief Assessment Note: Patient is a 57yo F here for UTI and supraventricular dysrhythmia PCP None listed Payer [employer] and Medicaid LEAD SHIPPER reviewed EMR. Per provider note, possible new onset CHF and likely will be here less than two midnights. LEAD SHIPPER entered room and introduced self and role. Patient immediately requested this LEAD SHIPPER leave the room. Patient claims I've been insulted by too many social workers before. Patient refused to let this LEAD SHIPPER write name and number on the white board. Patient requested this LEAD SHIPPER not return. Patient reports only wanting to speak to the doctor from now on. Plan: d/c plan unclear at this time. Likely home when medically stale. Unclear on transportation plan. CM team will continue to follow closely. KEVIN Diaz Discharge Planning/Care Management CM Discharge Assessment Start: 05/04/23 09:24 Freq: Status: Active Protocol: Document 05/04/23 09:24 (Rec: 05/04/23 09:25 [id number]) Discharge Planning Assessment Assigned Director Instructional Material KEVIN Melton DPOA/Assigned Designee Name none Advance Directives? No History Provided By Medical Record Prior Living Arrangements House Household Members none Discharge Plan Home Whiteboard Updated in Patient Room with No name and ext. # of Director Instructional Material Comment patient refused to speak with this LEAD SHIPPER Review Status In Process Next Review Type Continued Stay Review
[2023-05-04] MEDS: METOPROLOL ER 25 MG TABLET 12.5 MG PO (09:43)
[2023-05-04] MEDS: cefTRIAXone 1,000 MG in SODIUM CHLORIDE 0.9% 100 ML 200 MG IV (09:46)
[2023-05-04] MEDS: AMIODARONE 150 MG/100 ML PIGGYBACK 600 MG IV (13:18)
--- NOTE | 2023-05-04 13:29 | PC.NURSE ---
Addendum entered by Duane Khan R.N. 05/04/23 17:50: Continues to decline some care including vital signs. Reluctantly agreeable to transfer to outside facility. Addendum entered by Duane Khan R.N. 05/04/23 14:46: Patient frequently expressing desires to both leave in order to smoke, and continue staying for medical treatment. Refusing some care including SCD's, bedside tele, and some vital sign readings. Continuing to help manage patient's anxiety. Original Note: 1305 - HR sustaining 170-190, BP 108/68, O2 98% on RA. Patient stated complaint of dizziness. Dr Dobson alerted and Amiodarone bolus ordered. 1328 - Amio bolus finished infusing. HR jumping between 80-130, patient stated dizziness is no longer present. Continuing to monitor.
[2023-05-04 15:27] LABS: C-Reactive Protein Quant < 0.5 mg/dL (<1.0)
[2023-05-04 16:18] LABS: Erythrocyte Sedimentation Rate 8 MM/HR (0-20)
[2023-05-04] MEDS: AMIODARONE 360 MG/200 ML PIGGYBACK 33.3 MG IV (18:35)
[2023-05-04] MEDS: SODIUM CHLORIDE 0.9% 1,000 ML 100 ML IV (20:27)
[2023-05-05] VITALS (7 sets, daily range): BP systolic 96–127; BP diastolic 61–78; PULSE 64–111; RESP 17–20; TEMP 36.3–36.9; O2SAT 96–99
[2023-05-05] MEDS: AMIODARONE 360 MG/200 ML PIGGYBACK 16.7 MG IV (00:08)
[2023-05-05 04:34] LABS: Basophils Absolute Auto 100 /uL (0-100); Basophils Percent Auto 1.1 % (0-2); Eosinophils Absolute Auto 300 /uL (0-450); Eosinophils Percent Auto 2.9 % (2-4); Hemoglobin 15.2 g/dL (12.0-16.0); Lymphocytes Absolute Auto 3400 /uL (1100-4500); Lymphocytes Percent Auto 32.2 % (25-40); Mean Corpuscular HGB Conc 33.8 % (30-36); Mean Corpuscular Hemoglobin 31.1 PG (26-34); Mean Corpuscular Volume 92.2 fL (80-100); Monocytes Absolute Auto 500 /uL (0-900); Monocytes Percent Auto 5.2 % (3-14); Neutrophils Absolute Auto 6100 /uL (1500-7000); Neutrophils Percent Auto 58.6 % (50-75); Platelet Count 164 X10^3/uL (150-400); Red Blood Cell Count 4.88 X10^6/uL (4.0-5.2); Red Cell Distribution Width 14.2 % (11.6-14.8); White Blood Cell Count 10.4 X10^3/uL (4.5-11.0)
[2023-05-05 04:37] LABS: Add Manual Diff / Slide Review SLIDE REVIEW
[2023-05-05 04:41] LABS: BUN Creatinine Ratio 12.3 (6-22); Blood Urea Nitrogen 10 mg/dL (7-17); Calcium 10.2 mg/dL (8.4-10.2); Carbon Dioxide 21 mmol/L (22-32); Chloride 109 mmol/L (98-107); Estimated Glomerular Filt Rate > 60 mL/min (>60); Glucose 113 mg/dL (70-100); HEMOLYSIS 28 (0-50); Potassium 3.7 mmol/L (3.4-5.1); Sodium 138 mmol/L (137-145)
[2023-05-05 07:06] LABS: RBC Morphology Normal Morphology
--- NOTE | 2023-05-05 13:29 | CM.DPNOTE ---
DC Note According to Dr Dobson, patient will be transferred to today as imaging showed a mass on patient's heart. No additional needs from this CM team. FANTASMA
--- NOTE | 2023-05-05 13:32 | PC.NURSE ---
Addendum entered by Sangita Yoder R.N. 05/05/23 19:14: Pt requesting bed alarm be deactivated. Pt expresses frustration with not being able to go outside to smoke. Pt educated on importance of calling to prevent falls. Pt continues to express frustration with bed alarm. Pt currently steady during ambulation. Care ongoing. Will continue to monitor. Original Note: Day shift: Pt A&Ox4. States, you guys are giving me too much medication. Pt reeducated on SVT and the purpose amiodarone. Pt states, My heart isn't going fast right now, so I don't know why you guys have me on this medication. This RN notified provider of pt concerns. Provider at bedside, educating pt on importance of the medication, what it is used for, and what the plan of care is. Pt declines medication, pt declines antibiotic. BP stable, HR 90's-190'swith bursts of PSVT. Pt requesting to go outside, for a damn cigarette. Hospital policy explained to pt. This RN offered alternatives, pt declines. Provider aware. Pt up in room declining assistance. Bed alarm active. Call light within reach. Bed locked. Nonskid footwear applied. Pt declining SCDs. Care ongoing. Will continue to monitor.
[2023-05-06 00:10] VITALS: BP 128/78; PULSE 75; RESP 17; TEMP 36.1; O2SAT 96
[2023-05-06 04:00] VITALS: BP 128/71; PULSE 70; RESP 17; TEMP 36.2; O2SAT 93
[2023-05-06 04:47] LABS: BUN Creatinine Ratio 10.3 (6-22); Blood Urea Nitrogen 9 mg/dL (7-17); Calcium 10.8 mg/dL (8.4-10.2); Carbon Dioxide 24 mmol/L (22-32); Chloride 108 mmol/L (98-107); Estimated Glomerular Filt Rate > 60 mL/min (>60); Glucose 102 mg/dL (70-100); HEMOLYSIS < 15 (0-50); Sodium 139 mmol/L (137-145)
[2023-05-06 05:08] LABS: Add Manual Diff / Slide Review NO; Basophils Absolute Auto 200 /uL (0-100); Basophils Percent Auto 1.8 % (0-2); Eosinophils Absolute Auto 500 /uL (0-450); Eosinophils Percent Auto 4.9 % (2-4); Hematocrit 43.8 % (36-46); Hemoglobin 14.9 g/dL (12.0-16.0); Lymphocytes Absolute Auto 3500 /uL (1100-4500); Mean Corpuscular HGB Conc 33.9 % (30-36); Mean Corpuscular Hemoglobin 31.1 PG (26-34); Mean Corpuscular Volume 91.8 fL (80-100); Monocytes Absolute Auto 600 /uL (0-900); Monocytes Percent Auto 6.1 % (3-14); Neutrophils Absolute Auto 4800 /uL (1500-7000); Neutrophils Percent Auto 50.2 % (50-75); Platelet Count 156 X10^3/uL (150-400); Red Blood Cell Count 4.77 X10^6/uL (4.0-5.2); Red Cell Distribution Width 14.5 % (11.6-14.8); White Blood Cell Count 9.6 X10^3/uL (4.5-11.0)
--- NOTE | 2023-05-06 08:02 | PM.PN.1 ---
Subjective Subjective Interval history: Echo returned showing 8x4cm right atrial mass filling the entire atrium. Transfer process started to and patient accepted there pending bed by Dr. Dinero cardiology. Exam Vital Signs (past 8 hours): - 05/06/23 00:10 05/06/23 04:00 Temperature 97.0 F L 97.2 F L Pulse Rate 75 70 Respiratory Rate 17 17 Blood Pressure 128/78 128/71 Pulse Oximetry 96 93 Fraction of Inspired Oxygen 21 Oxygen Delivery Method Room Air Oxygen Flow Rate 0 Narrative Exam Narrative: GEN: no acute distress, malodorous and slightly disheveled HEENT: moist mucous membranes, PERRL NECK: trachea midline, no JVD CV: regular rate and rhythm, no murmurs PULM: clear bilaterally ABD: soft, nontender, nondistended, no organomegaly EXT: warm and well perfused with no edema NEURO: awake, alert, oriented, no focal deficits Objective Labs 05/06/23 04:13 05/06/23 04:13 Labs: Laboratory Results - last 24 hr 05/06/23 04:13 WBC 9.6 RBC 4.77 Hgb 14.9 Hct 43.8 MCV 91.8 MCH 31.1 MCHC 33.9 RDW 14.5 Plt Count 156 Neut % (Auto) 50.2 Lymph % (Auto) 37.0 [place] % (Auto) 6.1 Eos % (Auto) 4.9 H Baso % (Auto) 1.8 Neut # (Auto) 4800 Lymph # (Auto) 3500 [place] # (Auto) 600 Eos # (Auto) 500 H Baso # (Auto) 200 H Sodium 139 Potassium 4.0 Chloride 108 H Carbon Dioxide 24 BUN 9 Creatinine 0.87 Estimated GFR > 60 BUN/Creatinine Ratio 10.3 Glucose 102 H Calcium 10.8 H PFSH Social History household members: none Smoking Status: Current every day smoker alcohol intake: current Assessment & Plan Assessment & Plan narrative: # large right atrial mass -found on echo with 8x4cm mass in RA filling the entire atrium and extending to the tricuspid valve -unclear what the mass is, myxoma vs clot vs congenital septal defect? -accepted for transfer to by Dr. Dinero and patient awaiting bed -will have CT surgery consult at for potential mass removal -CRP and ESR normal # recurrent symptomatic SVT -having runs of 180's HR in ED, EKG confirmed SVT. Then would drop back to sinus w/ HR 70's -related to large atrial mass as above -BP dropped with 12.5 po metop tart, amio drip started per cards recs but patient did not want the maintenance drip and only amio bolus PRN -tele # hypotension, improved -patient BP as low as 60/41, she is asymptomatic -monitor and avoid BP lowering meds -recieved IVF -orthostatic vitals qshift # acute lightheadedness -likely related to SVT -received IVF -amio as above Code status is full code. DVT prophylaxis with SCDs. Proxy is son. I have reviewed home meds and used all available resources to reconcile the home meds. Dispo: Pending transfer to . Quality VTE Deep Vein Thrombosis/Pulmonary Embolism Present on Admission: No
[2023-05-06 10:00] VITALS: BP 121/71; PULSE 62; RESP 17; TEMP 36.6; O2SAT 95
--- NOTE | 2023-05-06 10:27 | CM.DPC ---
DCP Cont. Reviewed chart and team rounds for status updates. Pt will hopefully transfer to sometime today, pending bed availability. Updated her son's contact info in EMR. Cont. to monitor.
--- NOTE | 2023-05-06 12:19 | PC.NURSE ---
Addendum entered by Porsha Javier R.N. 05/06/23 17:01: Spoke with nurse coordinator, provider, and case packer and sealer throughout the day regarding pt transfer. Team reached out to several hospitals to attempt to transfer patient. RN was informed pt accepted/waiting for room at [facility] and . Throughout afternoon pt had short periods of non-sustained SVT (5-15 beats). Pt asymptomatic. Original Note: In am spoke with patient regarding use of call bruno, enforcing hospital policy on utilizing call bruno for needs. Asked patient to quickly inform RN if pt felt any palpitations, dizziness, lightheadedness, or faintness. RN closely monitoring pt's HR and rhythm.
[2023-05-06 14:41] VITALS: BP 111/69; PULSE 70; RESP 18; TEMP 36.6; O2SAT 100
[2023-05-06 16:07] LABS: Cholesterol 207 mg/dL (140-199); HDL Cholesterol 37 mg/dL (40-60); LDL Cholesterol Calculated 145 mg/dL (<100); Triglycerides 124 mg/dL (35-150)
[2023-05-06 16:39] LABS: Hemoglobin A1C% w Est Avg Glu 5.7 % (4.0-6.0)
[2023-05-06 17:10] VITALS: BP 110/80; PULSE 79; RESP 16; TEMP 36.6; O2SAT 100
--- NOTE | 2023-05-06 18:36 | P.PN_ITS ---
Subjective Subjective Interval history: Patient now accepted to [facility] by Dr. Richards, cardiology and Dr. Berrios hospitalist. No changes and awaiting bed. Exam Vital Signs (past 8 hours): - 05/06/23 14:41 Temperature 98 F Pulse Rate 70 Respiratory Rate 18 Blood Pressure 111/69 Pulse Oximetry 100 Oxygen Flow Rate 0 Fraction of Inspired Oxygen 21 Oxygen Delivery Method Room Air Oxygen Flow Rate 0 Narrative Exam Narrative: GEN: no acute distress, malodorous and slightly disheveled HEENT: moist mucous membranes, PERRL, poor dentition NECK: trachea midline, no JVD CV: regular rate and rhythm, no murmurs PULM: clear bilaterally ABD: soft, nontender, nondistended, no organomegaly EXT: warm and well perfused with no edema NEURO: awake, alert, oriented, no focal deficits Objective Labs 05/06/23 04:13 05/06/23 04:13 Labs: Laboratory Results - last 24 hr 05/06/23 05/06/23 00:01 04:13 WBC 9.6 RBC 4.77 Hgb 14.9 Hct 43.8 MCV 91.8 MCH 31.1 MCHC 33.9 RDW 14.5 Plt Count 156 Neut % (Auto) 50.2 Lymph % (Auto) 37.0 [place] % (Auto) 6.1 Eos % (Auto) 4.9 H Baso % (Auto) 1.8 Neut # (Auto) 4800 Lymph # (Auto) 3500 [place] # (Auto) 600 Eos # (Auto) 500 H Baso # (Auto) 200 H Sodium 139 Potassium 4.0 Chloride 108 H Carbon Dioxide 24 BUN 9 Creatinine 0.87 Estimated GFR > 60 BUN/Creatinine Ratio 10.3 Glucose 102 H Hemoglobin A1c 5.7 Calcium 10.8 H Triglycerides 124 Cholesterol 207 H LDL Cholesterol, Calc 145 H HDL Cholesterol 37 L PFSH Social History household members: none Smoking Status: Current every day smoker alcohol intake: current Assessment & Plan Assessment & Plan narrative: # large right atrial mass -found on echo with 8x4cm mass in RA filling the entire atrium and extending to the tricuspid valve -unclear what the mass is, myxoma vs clot vs congenital septal defect? -accepted for transfer to by Dr. Dinero and patient awaiting bed -also accepted for transfer to [facility] by Dr. Berrios hospitalist and Dr. Richards cardiology -will have CT surgery consult once at tertiary care center for potential mass removal -CRP and ESR normal # recurrent symptomatic SVT -having runs of 180's HR in ED, EKG confirmed SVT. Then would drop back to sinus w/ HR 70's -related to large atrial mass as above -BP dropped with 12.5 po metop tart, amio drip started per cards recs but patient did not want the maintenance drip and only amio bolus PRN -tele # hypotension, improved -patient BP as low as 60/41, she is asymptomatic -monitor and avoid BP lowering meds -recieved IVF -orthostatic vitals qshift # acute lightheadedness -likely related to SVT -received IVF -amio as above Code status is full code. DVT prophylaxis with SCDs. Proxy is son. I have reviewed home meds and used all available resources to reconcile the home meds. Dispo: Pending transfer to [facility] or . Quality VTE Deep Vein Thrombosis/Pulmonary Embolism Present on Admission: No
[2023-05-06 21:55] VITALS: BP 120/73; PULSE 76; RESP 20; TEMP 36.5; O2SAT 97
[2023-05-07 02:28] VITALS: BP 117/74; PULSE 90; RESP 20; TEMP 36.6; O2SAT 95
[2023-05-07 05:44] LABS: Basophils Absolute Auto 100 /uL (0-100); Basophils Percent Auto 1.2 % (0-2); Eosinophils Absolute Auto 400 /uL (0-450); Eosinophils Percent Auto 3.5 % (2-4); Hematocrit 46.4 % (36-46); Hemoglobin 15.8 g/dL (12.0-16.0); Lymphocytes Absolute Auto 3200 /uL (1100-4500); Lymphocytes Percent Auto 28.4 % (25-40); Mean Corpuscular HGB Conc 34.1 % (30-36); Mean Corpuscular Hemoglobin 31.1 PG (26-34); Mean Corpuscular Volume 91.2 fL (80-100); Monocytes Absolute Auto 700 /uL (0-900); Monocytes Percent Auto 6.2 % (3-14); Neutrophils Absolute Auto 6800 /uL (1500-7000); Neutrophils Percent Auto 60.7 % (50-75); Red Blood Cell Count 5.09 X10^6/uL (4.0-5.2); White Blood Cell Count 11.2 X10^3/uL (4.5-11.0)
[2023-05-07 06:00] VITALS: BP 107/63; PULSE 82; RESP 18; TEMP 36.8; O2SAT 96
[2023-05-07 06:04] LABS: Add Manual Diff / Slide Review SLIDE REVIEW
[2023-05-07 06:36] LABS: BUN Creatinine Ratio 14.4 (6-22); Blood Urea Nitrogen 13 mg/dL (7-17); Calcium 10.9 mg/dL (8.4-10.2); Carbon Dioxide 25 mmol/L (22-32); Chloride 105 mmol/L (98-107); Estimated Glomerular Filt Rate > 60 mL/min (>60); Glucose 108 mg/dL (70-100); HEMOLYSIS < 15 (0-50); Potassium 3.8 mmol/L (3.4-5.1); Sodium 137 mmol/L (137-145)
[2023-05-07 08:00] VITALS: BP 121/70; PULSE 69; RESP 18; TEMP 36.8; O2SAT 95
[2023-05-07 08:00] LABS: RBC Morphology Normal Morphology
[2023-05-07 08:42] LABS: Platelet Count 163 X10^3/uL (150-400)
--- NOTE | 2023-05-07 10:31 | CM.DPC ---
DCP cont. Per team rounds, pt to d/c-transfer later today, [facility] accepting and bed is available. No further d/c needs identified at this time.
[2023-05-07 12:00] VITALS: BP 120/68; PULSE 85; RESP 18; TEMP 36.6; O2SAT 96
[2023-05-07 16:00] VITALS: BP 120/68; PULSE 85; RESP 18; TEMP 36.2; O2SAT 96
--- NOTE | 2023-05-07 17:26 | PM.PN.1 ---
Subjective Subjective Interval history: No transfer yet. Awaiting bed at [facility]. No SVT runs today. Exam Vital Signs (past 8 hours): - 05/07/23 12:00 05/07/23 16:00 Temperature 97.9 F 97.2 F L Pulse Rate 85 85 Respiratory Rate 18 18 Blood Pressure 120/68 120/68 Pulse Oximetry 96 96 Oxygen Flow Rate 0 0 Fraction of Inspired Oxygen 21 Oxygen Delivery Method Room Air Oxygen Flow Rate 0 Narrative Exam Narrative: GEN: no acute distress, malodorous and slightly disheveled HEENT: moist mucous membranes, PERRL, poor dentition NECK: trachea midline, no JVD CV: regular rate and rhythm, no murmurs PULM: clear bilaterally ABD: soft, nontender, nondistended, no organomegaly EXT: warm and well perfused with no edema NEURO: awake, alert, oriented, no focal deficits Objective Labs 05/07/23 04:14 05/07/23 04:14 Labs: Laboratory Results - last 24 hr 05/07/23 04:14 WBC 11.2 H RBC 5.09 Hgb 15.8 Hct 46.4 H MCV 91.2 MCH 31.1 MCHC 34.1 RDW 14.0 Plt Count 163 Neut % (Auto) 60.7 Lymph % (Auto) 28.4 [place] % (Auto) 6.2 Eos % (Auto) 3.5 Baso % (Auto) 1.2 Neut # (Auto) 6800 Lymph # (Auto) 3200 [place] # (Auto) 700 Eos # (Auto) 400 Baso # (Auto) 100 Platelet Estimate RBC Morphology Normal morphology Sodium 137 Potassium 3.8 Chloride 105 Carbon Dioxide 25 BUN 13 Creatinine 0.90 Estimated GFR > 60 BUN/Creatinine Ratio 14.4 Glucose 108 H Calcium 10.9 H PFSH Social History household members: none Smoking Status: Current every day smoker alcohol intake: current Assessment & Plan Assessment & Plan narrative: # large right atrial mass -found on echo with 8x4cm mass in RA filling the entire atrium and extending to the tricuspid valve -unclear what the mass is, myxoma vs clot vs congenital septal defect? -accepted for transfer to by Dr. Dinero and patient awaiting bed -also accepted for transfer to [facility] by Dr. Berrios hospitalist and Dr. Richards cardiology -will have CT surgery consult once at tertiary care center for potential mass removal -CRP and ESR normal # recurrent symptomatic SVT -having runs of 180's HR in ED, EKG confirmed SVT. Then would drop back to sinus w/ HR 70's -related to large atrial mass as above -BP dropped with 12.5 po metop tart, amio drip started per cards recs but patient did not want the maintenance drip and only amio bolus PRN -use amio 150 bolus PRN if goes back into SVT -tele # hypotension, improved -patient BP as low as 60/41, she is asymptomatic -monitor and avoid BP lowering meds -recieved IVF -orthostatic vitals qshift # acute lightheadedness -likely related to SVT -received IVF -amio as above Code status is full code. DVT prophylaxis with SCDs. Proxy is son. I have reviewed home meds and used all available resources to reconcile the home meds. Dispo: Pending transfer to [place] or . Likely [place]. Quality VTE Deep Vein Thrombosis/Pulmonary Embolism Present on Admission: No
--- NOTE | 2023-05-07 18:18 | P.DS_ITS ---
History of Present Illness History of Present Illness Chief complaint: Afib RVR Narrative: Ana Cristina Lam is a 57-year-old female with no significant past medical history who presents with recurrent dizzy spells and found to be having SVT episodes in the ED. Patient says she has had lighheadedness randomly requiring her to sit down for it to improve over the last week. She then had an episode today where she felt like curtains were closing in and she was going to pass out so she called EMS. She did not lose consciousness but had presyncope. In the ED patient found to be having runs of SVT with HR up to 190's. She did not require cardioversion as it would abruptly return to sinus. BP soft in the ED as well, but patient notes she always has very low BP and has no symptoms. She denies CP, SOB, abd pain, LE swelling, diarrhea or dysuria. Discharge Providers Provider Date of admission: 05/03/23 13:08 Discharge Date: 05/07/23 Primary care physician: Doctor Landa, Discharge provider: Ken Dobson DO Summary Hospital Course Discharge Diagnosis: # large right atrial mass -found on echo with 8x4cm mass in RA filling the entire atrium and extending to the tricuspid valve -unclear what the mass is, myxoma vs clot vs congenital septal defect? -also accepted for transfer to [facility] by Dr. Berrios hospitalist and Dr. Richards cardiology -will have CT surgery consult once at tertiary care center for potential mass removal -CRP and ESR normal # recurrent symptomatic SVT -having runs of 180's HR in ED, EKG confirmed SVT. Then would drop back to sinus w/ HR 70's -related to large atrial mass as above -BP dropped with 12.5 po metop tart, amio drip started per cards recs but patient did not want the maintenance drip and only amio bolus PRN -use amio 150 bolus PRN if goes back into SVT -tele # hypotension, improved -patient BP as low as 60/41, she is asymptomatic -monitor and avoid BP lowering meds -recieved IVF -orthostatic vitals qshift # acute lightheadedness -likely related to SVT -received IVF -amio as above Hospital Course: Admitted for dizziness and runs of SVT. Given amio boluses which improved this. Found to have large 8x4cm right atrial mass and transferred to [facility] for CT surgery consult. Exam Vital Signs (past 8 hours): - 05/07/23 12:00 05/07/23 16:00 Temperature 97.9 F 97.2 F L Pulse Rate 85 85 Respiratory Rate 18 18 Blood Pressure 120/68 120/68 Pulse Oximetry 96 96 Oxygen Flow Rate 0 0 Fraction of Inspired Oxygen 21 Oxygen Delivery Method Room Air Oxygen Flow Rate 0 Narrative Exam Narrative: GEN: no acute distress, malodorous and slightly disheveled HEENT: moist mucous membranes, PERRL, poor dentition NECK: trachea midline, no JVD CV: regular rate and rhythm, no murmurs PULM: clear bilaterally ABD: soft, nontender, nondistended, no organomegaly EXT: warm and well perfused with no edema NEURO: awake, alert, oriented, no focal deficits Objective Labs 05/07/23 04:14 05/07/23 04:14 Labs: Laboratory Results - last 24 hr 05/07/23 04:14 WBC 11.2 H RBC 5.09 Hgb 15.8 Hct 46.4 H MCV 91.2 MCH 31.1 MCHC 34.1 RDW 14.0 Plt Count 163 Neut % (Auto) 60.7 Lymph % (Auto) 28.4 [place] % (Auto) 6.2 Eos % (Auto) 3.5 Baso % (Auto) 1.2 Neut # (Auto) 6800 Lymph # (Auto) 3200 [place] # (Auto) 700 Eos # (Auto) 400 Baso # (Auto) 100 Platelet Estimate RBC Morphology Normal morphology Sodium 137 Potassium 3.8 Chloride 105 Carbon Dioxide 25 BUN 13 Creatinine 0.90 Estimated GFR > 60 BUN/Creatinine Ratio 14.4 Glucose 108 H Calcium 10.9 H PFSH Social History household members: none Smoking Status: Current every day smoker alcohol intake: current Discharge Plan Discharge Plan Patient Disposition: Xfer Acute Care Hospital Discharge Data Primary Care Provider: Miscellaneous,Doctor Quality VTE Deep Vein Thrombosis/Pulmonary Embolism Present on Admission: No
[2023-05-07 19:48] VITALS: BP 107/55; PULSE 70; RESP 18; TEMP 36.4; O2SAT 98
[2023-05-08 01:46] VITALS: BP 127/68; PULSE 70; RESP 18; TEMP 36.7; O2SAT 96
[2023-05-08 04:00] VITALS: BP 122/58; PULSE 78; RESP 20; TEMP 37; O2SAT 96
[2023-05-08 05:18] LABS: Basophils Absolute Auto 200 /uL (0-100); Basophils Percent Auto 1.9 % (0-2); Eosinophils Absolute Auto 400 /uL (0-450); Eosinophils Percent Auto 4.7 % (2-4); Hematocrit 44.3 % (36-46); Hemoglobin 15.3 g/dL (12.0-16.0); Lymphocytes Absolute Auto 3000 /uL (1100-4500); Lymphocytes Percent Auto 36.4 % (25-40); Mean Corpuscular HGB Conc 34.7 % (30-36); Mean Corpuscular Hemoglobin 31.2 PG (26-34); Mean Corpuscular Volume 89.9 fL (80-100); Monocytes Absolute Auto 500 /uL (0-900); Monocytes Percent Auto 6.6 % (3-14); Neutrophils Absolute Auto 4100 /uL (1500-7000); Neutrophils Percent Auto 50.4 % (50-75); Platelet Count 145 X10^3/uL (150-400); Red Blood Cell Count 4.92 X10^6/uL (4.0-5.2); Red Cell Distribution Width 13.8 % (11.6-14.8); White Blood Cell Count 8.1 X10^3/uL (4.5-11.0)
[2023-05-08 05:35] LABS: BUN Creatinine Ratio 19.3 (6-22); Blood Urea Nitrogen 16 mg/dL (7-17); Calcium 10.8 mg/dL (8.4-10.2); Carbon Dioxide 27 mmol/L (22-32); Chloride 105 mmol/L (98-107); Estimated Glomerular Filt Rate > 60 mL/min (>60); Glucose 98 mg/dL (70-100); HEMOLYSIS < 15 (0-50); Potassium 3.8 mmol/L (3.4-5.1); Sodium 139 mmol/L (137-145)
[2023-05-08 07:20] LABS: Add Manual Diff / Slide Review SLIDE REVIEW
[2023-05-08 07:21] LABS: RBC Morphology Normal Morphology
[2023-05-08 08:00] VITALS: BP 96/67; PULSE 71; RESP 18; TEMP 36.2; O2SAT 96
--- NOTE | 2023-05-08 11:45 | CM.DPC ---
DCP Cont. Per team rounds, [place] ended up not having a bed for pt yesterday. D/C cont. to be pending.
[2023-05-08 12:46] VITALS: BP 101/66; PULSE 72; RESP 19; TEMP 36.6; O2SAT 97
--- NOTE | 2023-05-08 14:16 | PM.PN.1 ---
Subjective Subjective Interval history: No transfer yet. Awaiting bed at [facility]. No SVT runs today. Patient becoming more frustrated, mainly about not being able to smoke a cigarette. Does not wish for nicotine patch. Exam Vital Signs (past 8 hours): - 05/08/23 08:00 05/08/23 12:46 Temperature 97.1 F L 98 F Pulse Rate 71 72 Respiratory Rate 18 19 Blood Pressure 96/67 101/66 Pulse Oximetry 96 97 Oxygen Flow Rate 0 0 Fraction of Inspired Oxygen 21 Oxygen Delivery Method Room Air Oxygen Flow Rate 0 Narrative Exam Narrative: GEN: no acute distress, malodorous and slightly disheveled HEENT: moist mucous membranes, PERRL, poor dentition NECK: trachea midline, no JVD CV: regular rate and rhythm, no murmurs PULM: clear bilaterally ABD: soft, nontender, nondistended, no organomegaly EXT: warm and well perfused with no edema NEURO: awake, alert, oriented, no focal deficits Objective Labs 05/08/23 03:55 05/08/23 03:55 Labs: Laboratory Results - last 24 hr 05/08/23 03:55 WBC 8.1 RBC 4.92 Hgb 15.3 Hct 44.3 MCV 89.9 MCH 31.2 MCHC 34.7 RDW 13.8 Plt Count 145 L Neut % (Auto) 50.4 Lymph % (Auto) 36.4 [place] % (Auto) 6.6 Eos % (Auto) 4.7 H Baso % (Auto) 1.9 Neut # (Auto) 4100 Lymph # (Auto) 3000 [place] # (Auto) 500 Eos # (Auto) 400 Baso # (Auto) 200 H Plt Morphology Comment RBC Morphology Normal morphology Sodium 139 Potassium 3.8 Chloride 105 Carbon Dioxide 27 BUN 16 Creatinine 0.83 Estimated GFR > 60 BUN/Creatinine Ratio 19.3 Glucose 98 Calcium 10.8 H [facility] Social History household members: none Smoking Status: Current every day smoker alcohol intake: current Assessment & Plan Assessment & Plan narrative: # large right atrial mass -found on echo with 8x4cm mass in RA filling the entire atrium and extending to the tricuspid valve -unclear what the mass is, myxoma vs clot vs congenital septal defect? -accepted for transfer to by Dr. Lanker and patient awaiting bed -also accepted for transfer to [facility] by Dr. Berrios hospitalist and Dr. Richards cardiology -will have CT surgery consult once at tertiary care center for potential mass removal -CRP and ESR normal # recurrent symptomatic SVT -having runs of 180's HR in ED, EKG confirmed SVT. Then would drop back to sinus w/ HR 70's -related to large atrial mass as above -BP dropped with 12.5 po metop tart, amio drip started per cards recs but patient did not want the maintenance drip and only amio bolus PRN -use amio 150 bolus PRN if goes back into SVT -tele # hypotension, improved -patient BP as low as 60/41, she is asymptomatic -monitor and avoid BP lowering meds -recieved IVF -orthostatic vitals qshift # acute lightheadedness -likely related to SVT -received IVF -amio as above #tobacco use - patient refusing nicotine patch, not interested in quitting at this time. Code status is full code. DVT prophylaxis with SCDs. Proxy is son. I have reviewed home meds and used all available resources to reconcile the home meds. Dispo: Pending transfer to [place] or . Likely [place]. Quality VTE Deep Vein Thrombosis/Pulmonary Embolism Present on Admission: No
--- NOTE | 2023-05-08 14:50 | P.DS_ITS ---
History of Present Illness History of Present Illness Date Patient Seen: 05/08/23 Time Patient Seen: 09:15 Chief complaint: Afib RVR Narrative: Ana Cristina Lam is a 57-year-old female with no significant past medical history who presents with recurrent dizzy spells and found to be having SVT episodes in the ED. Patient says she has had lighheadedness randomly requiring her to sit down for it to improve over the last week. She then had an episode today where she felt like curtains were closing in and she was going to pass out so she called EMS. She did not lose consciousness but had presyncope. In the ED patient found to be having runs of SVT with HR up to 190's. She did not require cardioversion as it would abruptly return to sinus. BP soft in the ED as well, but patient notes she always has very low BP and has no symptoms. She denies CP, SOB, abd pain, LE swelling, diarrhea or dysuria. Discharge Providers Provider Date of admission: 05/03/23 13:08 Discharge Date: 05/08/23 Primary care physician: Doctor Cordell MD Discharge provider: Perez Charles DO Summary Hospital Course Discharge Diagnosis: # large right atrial mass # recurrent symptomatic SVT # hypotension, improved # acute lightheadedness Hospital Course: Admitted for dizziness and runs of SVT. Given amio boluses which improved this. Found to have large 8x4cm right atrial mass and transferred to [facility] ([place], [place]) for CT surgery consult. Time Spent with Patient Time spent: Greater than 30 minutes Exam Vital Signs (past 8 hours): - 05/08/23 08:00 05/08/23 12:46 Temperature 97.1 F L 98 F Pulse Rate 71 72 Respiratory Rate 18 19 Blood Pressure 96/67 101/66 Pulse Oximetry 96 97 Oxygen Flow Rate 0 0 Fraction of Inspired Oxygen 21 Oxygen Delivery Method Room Air Oxygen Flow Rate 0 Narrative Exam Narrative: GEN: no acute distress, malodorous and slightly disheveled HEENT: moist mucous membranes, PERRL, poor dentition NECK: trachea midline, no JVD CV: regular rate and rhythm, no murmurs PULM: clear bilaterally ABD: soft, nontender, nondistended, no organomegaly EXT: warm and well perfused with no edema NEURO: awake, alert, oriented, no focal deficits Objective Labs 05/08/23 03:55 05/08/23 03:55 Labs: Laboratory Results - last 24 hr 05/08/23 03:55 WBC 8.1 RBC 4.92 Hgb 15.3 Hct 44.3 MCV 89.9 MCH 31.2 MCHC 34.7 RDW 13.8 Plt Count 145 L Neut % (Auto) 50.4 Lymph % (Auto) 36.4 [place] % (Auto) 6.6 Eos % (Auto) 4.7 H Baso % (Auto) 1.9 Neut # (Auto) 4100 Lymph # (Auto) 3000 [place] # (Auto) 500 Eos # (Auto) 400 Baso # (Auto) 200 H Plt Morphology Comment RBC Morphology Normal morphology Sodium 139 Potassium 3.8 Chloride 105 Carbon Dioxide 27 BUN 16 Creatinine 0.83 Estimated GFR > 60 BUN/Creatinine Ratio 19.3 Glucose 98 Calcium 10.8 H [facility] Social History household members: none Smoking Status: Current every day smoker alcohol intake: current Discharge Plan Discharge Plan Patient Disposition: er [facility] Discharge Data Primary Care Provider: Miscellaneous,Doctor Quality VTE Deep Vein Thrombosis/Pulmonary Embolism Present on Admission: No
== END 2023-05-08 15:14 | disposition short-term general hospital (02) | DRG 207 ==
LOC: ED 12:29 → AC 13:37 → ICU 05-04 12:16 → AC 05-05 07:55 → ICU 05-05 07:55
PROVIDERS: Admitting Provider Student in an Organized Health Care Education/Training Program; Emergency Provider Emergency Medicine; Referring Provider Emergency Medicine; Visit Provider Student in an Organized Health Care Education/Training Program
DX: D15.1 Benign neoplasm of heart (principal); I47.10 Supraventricular tachycardia, unspecified; I95.9 Hypotension, unspecified; F17.210 Nicotine dependence, cigarettes, uncomplicated
CPT/HCPCS: 36415; 71045; 80048; 80053; 80061; 80305; 81001; 81003; 82550; 83036; 83605; 83690; 83735; 83880; 84443; 84484; 85025; 85379; 85610; 85651; 85730; 86140; 87040; 87077; 87086; 87186; 87797; 93005; 93307; 96365; 99284; 99291; J0282; J0696; Q9957